=== PATIENT | female | born 1955 | race African-American/Black ===

== ENCOUNTER 2018-11-12 18:03 | Emergency (ER) | payer MEDICAID ==
[~2018-11-12] VITALS: Ht 157.5 cm; Wt 77.0 kg
[2018-11-12] MEDS ORDERED: ONDANSETRON HCL 4MG/2ML INJ IV STA (18:46)
[2018-11-12] MEDS ORDERED: SODIUM CHLORIDE 0.9% 1,000 ML IV ONE (18:46)
[2018-11-12] MEDS ORDERED: KETOROLAC 30MG/ML VIAL IV STA (18:46)
[2018-11-12 19:14] LABS: BASOPHILS % 0.8 % (0.0-2.0); EOSINOPHILS % 2.4 % (0.0-5.0); HEMATOCRIT. 41.1 % (36.0-48.0); HEMOGLOBIN. 13.8 g/dL (12.0-16.0); LYMPHOCYTES % 26.8 % (20.0-50.0); MEAN CORPUSCULAR HEMOGLOBIN 29.6 pg (28.0-32.0); MEAN CORPUSCULAR VOLUME 88.1 fL (81.0-99.0); MEAN PLATELET VOLUME 8.5 fl (7.4-10.4); MONOCYTES % 7.4 % (2.0-8.0); NEUTROPHILS % 62.6 % (40.0-76.0); PLATELET 289 x1000/uL (130-400); RED BLOOD CELL COUNT 4.66 mill/uL (4.2-5.4); RED CELL DISTRIBUTION WIDTH 14.6 % (11.6-14.6)
[2018-11-12 19:18] LABS: CHLORIDE 105 mEq/L (98-107)
[2018-11-12] MEDS ORDERED: MANNITOL 12.5G (25%) VIAL 50ML IV ONE (22:30)
[2018-11-12] MEDS ORDERED: HYDRALAZINE 20MG/ML VIAL IV NR (22:30)
[2018-11-12 22:55] LABS: CLARITY URINE CLOUDY (CLEAR); COLOR URINE YELLOW (YELLOW); KETONES URINE NEGATIVE (NEGATIVE); LEUKOCYTE ESTERASE URINE TRACE (NEGATIVE); NITRITE URINE POSITIVE (NEGATIVE); OCCULT BLOOD URINE 1+ (NEGATIVE); PROTEIN URINE TRACE (NEGATIVE); SPECIFIC GRAVITY URINE 1.005 (1.005-1.030); UROBILINOGEN URINE 0.2 E.U./dL (0.2-1.0)
[2018-11-12 23:06] LABS: PARTIAL THROMBOPLASTIN TIME 25.9 sec (23.4-31.0); PROTHROMBIN TIME 10.2 sec (9.6-11.0)
[2018-11-12] MEDS ORDERED: DEXAMETHASONE 4MG/ML 1ML VIAL IV NR (23:15)
[2018-11-13 01:00] VITALS: BP 194/97
[2018-11-13] MEDS ORDERED: HYDRALAZINE 20MG/ML VIAL IV NR (01:00)
== END 2018-11-13 01:19 | disposition short-term general hospital (02) ==
LOC: ER 19:16 → CANBEDREQ 11-13 01:41
DX: S06.309A Unspecified focal traumatic brain injury with loss of consciousness of unspecified duration, initial encounter (principal); I10 Essential (primary) hypertension; E11.9 Type 2 diabetes mellitus without complications; Z86.73 Personal history of transient ischemic attack (TIA), and cerebral infarction without residual deficits; Z95.1 Presence of aortocoronary bypass graft; W06.XXXA Fall from bed, initial encounter; Y93.89 Activity, other specified; Y92.013 Bedroom of single-family (private) house as the place of occurrence of the external cause
CPT/HCPCS: 36415; 51702; 70450; 71045; 80053; 81003; 83880; 84484; 85025; 85610; 85730; 93005; 96365; 96366; 96375; 99291; J0360; J1100; J1885; J2150; J2405; J7030